=== PATIENT | male | born 1990 | race Caucasian/White ===

== ENCOUNTER 2021-07-02 18:36 | Emergency (ER) | payer SELFPAY ==
[~2021-07-02] VITALS: Ht 170.2 cm; Wt 109.1 kg
[2021-07-02 18:49] VITALS: BP 117/77
[2021-07-02] MEDS: PERTUSS(ACELL),DIPH,TET VAC/PF 0.5 ML SYRINGE IM. ONE (20:27)
== END 2021-07-02 20:33 | disposition home or self-care (01) ==
LOC: EMS 18:40
DX: S01.81XD Laceration without foreign body of other part of head, subsequent encounter (principal); X99.1XXD Assault by knife, subsequent encounter; F12.90 Cannabis use, unspecified, uncomplicated; Y93.89 Activity, other specified; Y92.89 Other specified places as the place of occurrence of the external cause; Y99.8 Other external cause status; Z48.00 Encounter for change or removal of nonsurgical wound dressing
CPT/HCPCS: 90471; 90715; 99283